=== PATIENT | female | born 2000 | race Caucasian/White ===

== ENCOUNTER 2019-06-18 16:22 | Emergency (ER) | payer OTHER ==
[~2019-06-18] VITALS: Ht 172.7 cm; Wt 74.8 kg
== END 2019-06-18 18:54 | disposition home or self-care (01) ==
LOC: ER 16:22
DX: H66.91 Otitis media, unspecified, right ear (principal)

== ENCOUNTER 2021-01-01 12:50 | Emergency (ER) | payer OTHER ==
[~2021-01-01] VITALS: Ht 175.3 cm; Wt 68.0 kg
[2021-01-01] MEDS ORDERED: INTESTINEX680 M1 PO (16:26)
[2021-01-01] MEDS ORDERED: AMOX-CLAV 875-1 EAC1 PO (16:26)
[2021-01-01] MEDS ORDERED: DICLOFENAC POTA50 MG PO (16:26)
== END 2021-01-01 16:52 | disposition home or self-care (01) ==
LOC: ER 12:50
DX: S40.011A Contusion of right shoulder, initial encounter (principal); S50.311A Abrasion of right elbow, initial encounter; S80.211A Abrasion, right knee, initial encounter; L03.115 Cellulitis of right lower limb; W18.39XA Other fall on same level, initial encounter; Y93.89 Activity, other specified; Y92.89 Other specified places as the place of occurrence of the external cause; Y99.8 Other external cause status